=== PATIENT | female | born 1960 | race Caucasian/White ===

== ENCOUNTER 2020-02-29 15:40 | Emergency (ER) | payer BC ==
[2020-02-29] MEDS ORDERED: Sodium Chloride 0.9% 10 ML Syringe FLUSH PRN (15:56)
--- NOTE | 2020-02-29 16:23 | CT ---
Head CT Technique: Multiple axial sections through the brain were obtained. Intravenous contrast was not utilized. Comparison: No prior intracranial imaging is available. Findings: Ventricles along with basal cisterns and sulci over the convexities are mildly prominent. Low density is seen within the posterior left occipital region which has the appearance of an old infarct. No additional low-density abnormalities are appreciated. No evidence of intracranial hemorrhage. No midline shift or mass-effect is appreciated. Atherosclerotic calcification is seen within the right vertebral vessel as well as slight carotid artery calcification also being seen within the carotid siphon. Bone window settings were reviewed. Nothing acute is appreciated within the mastoid or visualized ethmoid sinuses. No acute calvarial finding is appreciated. Impression: 1. 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 2. Other slight senescent change as noted above. 3. Nothing acute is definitely appreciated. Diagnostic code #2
[2020-02-29] MEDS ORDERED: Labetalol 100 MG/20 ML MDV IVPUSH ONE ×2 (17:01→18:23)
--- NOTE | 2020-02-29 17:27 | EDM.PDOC ---
ED HPI GENERAL MEDICAL PROBLEM - General Chief Complaint: Neuro Symptoms/Deficits Stated Complaint: RIGHT EYE LOSS OF VISION Time Seen by Provider: 02/29/20 15:56 Source of Information: Reports: Patient, Provider History Limitations: Reports: No Limitations - History of Present Illness INITIAL COMMENTS - FREE TEXT/NARRATIVE: The patient presents from [facility] for a possible stroke. 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 The patient was sent over for further work up for possible stroke. The patient said this all started on 11/11/19 at 8am when she was driving. She noticed she could not see to the right. She has no headache, fever, chills, cough, congestion, runny nose, chest pain, shortness of breath, abdominal pain, nausea or vomiting. She has no numbness or weakness. She has a history of polycystic kidneys and hypertension. She is on 3 medications. She is on metoprolol, clonidine, and lisinopril. She admits she has not been to a doctor in awhile. Onset: Sudden Duration: Week(s): (2 months ago) Severity: Moderate Improves with: Reports: None Worsens with: Reports: None Associated Symptoms: Reports: No Other Symptoms - Related Data Allergies Allergy/AdvReac Type Severity Reaction Status Date / Time No Known Allergies Allergy Verified 02/29/20 15:56 Past Medical History HEENT History: Reports: Impaired Vision Other HEENT History: wears eyeglasses. Cardiovascular History: Reports: Hypertension Gastrointestinal History: Reports: GERD Genitourinary History: Reports: Pyelonephritis, UTI, Recurrent Other Genitourinary History: polycystic kidney disease. Musculoskeletal History: Reports: Fracture Neurological History: Reports: Migraines Endocrine/Metabolic History: Reports: Hypothyroidism - Infectious Disease History Infectious Disease History: Reports: Chicken Pox, Mumps - Past Surgical History Female Surgical History: Reports: Hysterectomy Musculoskeletal Surgical History: Reports: Other (See Below) Other Musculoskeletal Surgeries/Procedures:: L) foot, pins Social & Family History - Tobacco Use Tobacco Use Status *Q: Never Tobacco User Second Hand Smoke Exposure: No - Caffeine Use Caffeine Use: Reports: Soda, Tea - Recreational Drug Use Recreational Drug Use: Yes ED ROS GENERAL - Review of Systems Review Of Systems: See Below Constitutional: Reports: No Symptoms HEENT: Reports: Other (vision loss) Respiratory: Reports: No Symptoms Cardiovascular: Reports: No Symptoms Endocrine: Reports: No Symptoms GI/Abdominal: Reports: No Symptoms : Reports: No Symptoms Musculoskeletal: Reports: No Symptoms Neurological: Reports: Other (vision loss) ED EXAM, NEURO - Physical Exam Exam: See Below Exam Limited By: No Limitations General Appearance: Alert, No Apparent Distress Eye Exam: Right Eye: Vision Changes (right lateral vision loss), Bilateral Eye: EOMI Ears: Normal External Exam Nose: Normal Inspection Head Exam: Atraumatic, Normocephalic Neck: Normal Inspection Respiratory/Chest: No Respiratory Distress, Lungs Clear, Normal Breath Sounds Cardiovascular: Regular Rate, Rhythm, No Edema, No Murmur GI/Abdominal: Soft, Non-Tender, No Organomegaly, No Mass Neurological: Alert, No Motor/Sensory Deficits, Oriented x 3, Other (No numbness or weakness. She does have loss of vision to the right visual field) Back Exam: Normal Inspection Extremities: Normal Inspection #1 Interpretation EKG Date: 02/29/20 Time: 16:07 Rhythm: NSR Rate (Beats/Min): 68 Melbeta: Normal P-Wave: Present QRS: Normal ST-T: Normal QT: Normal Course - Vital Signs Last Recorded V/S: Last Vital Signs Temp 97.9 F 02/29/20 15:52 Pulse 80 02/29/20 15:52 Resp 18 02/29/20 15:52 BP 231/101 H 02/29/20 17:27 Pulse Ox 98 02/29/20 15:52 - Orders/Labs/Meds Orders: Active Orders 24 hr Category Date Time Status Cardiac Monitoring [RC] . DIRECTED Care 02/29/20 15:56 Active EKG Documentation Completion [RC] STAT Care 02/29/20 15:57 Active Peripheral IV Care [RC] . DIRECTED Care 02/29/20 15:57 Active CORONAVIRUS COVID-19 VLADISLAV [MOLEC] Stat Lab 02/29/20 17:20 Ordered Sodium Chloride 0.9% [Saline Flush] Med 02/29/20 15:56 Active 10 ml FLUSH ASDIRECTED PRN Peripheral IV Insertion Adult [OM.PC] Stat Oth 02/29/20 15:56 Ordered Medication Orders Sodium Chloride (Saline Flush) 10 ml FLUSH ASDIRECTED PRN PRN Reason: Keep Vein Open Last Admin: 02/29/20 17:27 Dose: 10 ml Documented by: KEI Labs: Laboratory Tests 02/29/20 02/29/20 02/29/20 Range/Units 16:04 16:10 16:10 WBC 10.16 H (3.98-10.04) K/mm3 RBC 4.10 (3.98-5.22) M/mm3 Hgb 11.3 (11.2-15.7) gm/dl Hct 35.1 (34.1-44.9) % MCV 85.6 (79.4-94.8) fl MCH 27.6 (25.6-32.2) pg MCHC 32.2 (32.2-35.5) g/dl RDW Std Deviation 44.5 (36.4-46.3) fL Plt Count 296 (182-369) K/mm3 MPV 9.6 (9.4-12.3) fl Neut % (Auto) 76.6 H (34.0-71.1) % Lymph % (Auto) 14.6 L (19.3-51.7) % Roosevelt % (Auto) 5.5 (4.7-12.5) % Eos % (Auto) 2.1 (0.7-5.8) Baso % (Auto) 1.0 (0.1-1.2) % Neut # (Auto) 7.79 H (1.56-6.13) K/mm3 Lymph # (Auto) 1.48 (1.18-3.74) K/mm3 Roosevelt # (Auto) 0.56 H (0.24-0.36) K/mm3 Eos # (Auto) 0.21 (0.04-0.36) K/mm3 Baso # (Auto) 0.10 H (0.01-0.08) K/mm3 Manual Slide Review Normal smear PT 10.9 (9.7-12.0) SECONDS INR 1.02 APTT 25.9 (21.7-31.4) SECONDS Sodium (136-145) mEq/L Potassium (3.5-5.1) mEq/L Chloride (98-107) mEq/L Carbon Dioxide (21-32) mEq/L Anion Gap (5-15) BUN (7-18) mg/dL Creatinine (0.55-1.02) mg/dL Est Cr Clr Drug Dosing mL/min Estimated GFR (MDRD) (>60) mL/min BUN/Creatinine Ratio (14-18) Glucose (74-106) mg/dL POC Glucose 110 H (70-105) mg/dL Calcium (8.5-10.1) mg/dL Total Bilirubin (0.2-1.0) mg/dL AST (15-37) U/L ALT (14-59) U/L Alkaline Phosphatase (46-116) U/L Troponin I (0.00-0.056) ng/mL Total Protein (6.4-8.2) g/dl Albumin (3.4-5.0) g/dl Globulin gm/dL Albumin/Globulin Ratio (1-2) 02/29/20 Range/Units 16:10 WBC (3.98-10.04) K/mm3 RBC (3.98-5.22) M/mm3 Hgb (11.2-15.7) gm/dl Hct (34.1-44.9) % MCV (79.4-94.8) fl MCH (25.6-32.2) pg MCHC (32.2-35.5) g/dl RDW Std Deviation (36.4-46.3) fL Plt Count (182-369) K/mm3 MPV (9.4-12.3) fl Neut % (Auto) (34.0-71.1) % Lymph % (Auto) (19.3-51.7) % Roosevelt % (Auto) (4.7-12.5) % Eos % (Auto) (0.7-5.8) Baso % (Auto) (0.1-1.2) % Neut # (Auto) (1.56-6.13) K/mm3 Lymph # (Auto) (1.18-3.74) K/mm3 Roosevelt # (Auto) (0.24-0.36) K/mm3 Eos # (Auto) (0.04-0.36) K/mm3 Baso # (Auto) (0.01-0.08) K/mm3 Manual Slide Review PT (9.7-12.0) SECONDS INR APTT (21.7-31.4) SECONDS Sodium 143 (136-145) mEq/L Potassium 4.9 (3.5-5.1) mEq/L Chloride 111 H (98-107) mEq/L Carbon Dioxide 16 L (21-32) mEq/L Anion Gap 20.9 H (5-15) BUN 63 H (7-18) mg/dL Creatinine 4.7 H (0.55-1.02) mg/dL Est Cr Clr Drug Dosing 13.16 mL/min Estimated GFR (MDRD) 10 (>60) mL/min BUN/Creatinine Ratio 13.4 L (14-18) Glucose 102 (74-106) mg/dL POC Glucose (70-105) mg/dL Calcium 8.8 (8.5-10.1) mg/dL Total Bilirubin 0.3 (0.2-1.0) mg/dL AST 10 L (15-37) U/L ALT 14 (14-59) U/L Alkaline Phosphatase 103 (46-116) U/L Troponin I < 0.017 (0.00-0.056) ng/mL Total Protein 8.0 (6.4-8.2) g/dl Albumin 3.5 (3.4-5.0) g/dl Globulin 4.5 gm/dL Albumin/Globulin Ratio 0.8 L (1-2) Meds: Medications Generic Name Dose Route Start Last Admin Trade Name Freq PRN Reason Stop Dose Admin Sodium Chloride 10 ml 02/29/20 15:56 02/29/20 17:27 Saline Flush FLUSH 10 ml ASDIRECTED PRN Administration Keep Vein Open Discontinued Medications Generic Name Dose Route Start Last Admin Trade Name Freq PRN Reason Stop Dose Admin Labetalol HCl 20 mg 02/29/20 17:01 02/29/20 17:27 Normodyne IVPUSH 02/29/20 17:02 20 mg ONETIME ONE Administration Protocol - Re-Assessments/Exams Free Text/Narrative Re-Assessment/Exam: 02/29/20 17:45 A stroke alert was called. The patient's last time known well was 11/11/19 at 8am. I ordered an IV saline lock, EKG, CT of her head and labs. Her EKG shows a NSR with no acute changes. The CT of her head shows old appearing infarct within the left occipital region. Other slight senescent change as noted above. Nothing acute is definitely appreciated. Her WBC was slightly elevated at 10.16. Her PT and PTT were normal. Her creatinine was elevated at 4.7. Her GFR was low at 10. Her troponin is normal. She says her creatinine usually runs around 2. She admits to not seeing a doctor in a few years. She is on 3 medications for blood pressure and she has been taking them. I feel she needs to be admitted but not here. She will need nephrology and possibly neurology. I called [facility] in [place] and talked with Dr Whitney the hospitalist television operator and he agreed to the transfer. Departure - Departure Time of Disposition: 18:00 Disposition: DC/Tfer to [facility] 02 Condition: Fair Clinical Impression: Vision loss of right eye Cerebrovascular accident (CVA) Qualifiers: CVA mechanism: unspecified Qualified Code(s): I63.9 - Cerebral infarction, unspecified Hypertension Qualifiers: Hypertension type: unspecified Qualified Code(s): I10 - Essential (primary) hypertension Renal failure Qualifiers: Renal failure chronicity: acute Acute renal failure type: unspecified Qualified Code(s): N17.9 - Acute kidney failure, unspecified - Discharge Information Referrals: PCP,Not In Area [Primary Care Provider] - Forms: ED Department Discharge Sepsis Event Note (ED) - Evaluation Sepsis Screening Result: No Definite Risk - Focused Exam Vital Signs: Vital Signs Temp Pulse Resp BP Pulse Ox 02/29/20 17:27 231/101 H 02/29/20 15:52 97.9 F 80 18 187/127 H 98 - My Orders Last 24 Hours: My Active Orders 02/29/20 15:56 Cardiac Monitoring [RC] . DIRECTED Sodium Chloride 0.9% [Saline Flush] 10 ml FLUSH ASDIRECTED PRN Peripheral IV Insertion Adult [OM.PC] Stat 02/29/20 15:57 EKG Documentation Completion [RC] STAT Peripheral IV Care [RC] . DIRECTED 02/29/20 17:20 CORONAVIRUS COVID-19 VLADISLAV [MOLEC] Stat - Assessment/Plan Last 24 Hours: My Active Orders 02/29/20 15:56 Cardiac Monitoring [RC] . DIRECTED Sodium Chloride 0.9% [Saline Flush] 10 ml FLUSH ASDIRECTED PRN Peripheral IV Insertion Adult [OM.PC] Stat 02/29/20 15:57 EKG Documentation Completion [RC] STAT Peripheral IV Care [RC] . DIRECTED 02/29/20 17:20 CORONAVIRUS COVID-19 VLADISLAV [MOLEC] Stat
== END 2020-02-29 18:35 ==
LOC: JD.ED 15:40
DX: H54.61 Unqualified visual loss, right eye, normal vision left eye (principal); N17.9 Acute kidney failure, unspecified; I63.9 Cerebral infarction, unspecified; I10 Essential (primary) hypertension; Z20.822 Contact with and (suspected) exposure to COVID-19
CPT/HCPCS: 36415; 70450; 70450-26; 80053; 82962; 84484; 85025; 85610; 85730; 93005; 93010; 96374; 96376; 99285; 99285-25; J3490; U0002